=== PATIENT | female | born 1950 ===

== ENCOUNTER 2024-12-22 15:58 | Emergency (ER) | payer BC, OTHER ==
[2024-12-22 17:10] LABS: Absolute Basophils 0.1 K/uL (0-0.5); Absolute Eosinophils 0.2 K/uL (0-0.5); Absolute Lymphocytes (CBC) 2.6 K/uL (0.7-4.9); Absolute Monocytes 0.8 K/uL (0.1-1.3); Absolute Neutrophil 4.2 K/uL (1.8-8.0); Basophils % 0.8 % (0-1.3); Hematocrit 41.7 % (36.0-45.0); Hemoglobin 14.2 g/dL (12.0-15.0); Lymphocytes % 33.5 % (15.3-44.8); MCH 31.9 pg (27.0-35.0); MCHC 34.1 g/dL (32.0-36.0); MCV 93.6 fL (80-100); MPV 8.2 fL (7.6-11.3); Monocytes % 10.1 % (3.3-12.3); Neutrophils % 53.6 % (41.7-73.7); Nucleated Red Blood Cells % 0.1 % (0-0); Platelets 311 thou/uL (152-406); RBC Red Blood Cell Count 4.45 M/uL (3.86-4.86); Red Cell Distribution Width 13.2 % (12.1-15.2)
[2024-12-22 17:17] LABS: PT Prothrombin Time 11.5 SECONDS (10-13.0); PTT, Activated Partial Thromb 30.5 SECONDS (27.2-37.4); Protime INR 1.01
[2024-12-22 17:25] LABS: Anion Gap 12.1 mEq/L (5.0-15.0); Potassium 4.1 mEq/L (3.5-5.1); Troponin High Sensitivity 15.6 pg/mL (<58.9)
--- NOTE | 2024-12-22 17:54 | RAD REPORT ---
EXAMINATION: ONE VIEW CHEST XR CLINICAL INDICATION: Female, 74 years old.,CHEST PAIN TECHNIQUE: Frontal chest projection is submitted. Examination is limited by patient positioning and t echnique. COMPARISON: No prior exam. FINDINGS: The lungs are well inflated and clear. No pneumothorax or sizable effusion. The heart is normal in s ize. Mediastinal contours are unremarkable. IMPRESSION: No acute intrathoracic abnormalities.
--- NOTE | 2024-12-22 18:00 | EDPHYS ---
Physician Documentation [facility] Name: Kianna Sanderson Age: 74 yrs Sex: Female : 1950 Arrival Date: 12/22/2024 Time: 15:58 Bed 4 Private MD: ED Physician Grant Bo HPI: 12/22 16:26 This 74 yrs old Female presents to ER via Ambulatory with complaints of ec2 Abnormal EKG. 16:26 Patient arrives today for evaluation of a possible abnormal EKG. Patient reports no ec2 chest pain, or difficulty breathing. Patient reports that she occasionally has some lower extremity edema occasionally has some dyspnea exertion. Patient reports history of diabetes as well as hypertension. Was seen at her primary care doctor's office to establish care, wanted her evaluated in the ED.. Historical: - Allergies: 16:07 Actos; me1 16:07 Codeine; me1 16:07 hydrocodone; me1 - PMHx: 16:07 Diabetes mellitus; Hypertensive disorder; gastroparesis; me1 - PSHx: 16:07 Cholecystectomy; Total abdominal hysterectomy; Operative procedure on knee; pallate me1 repair as a child; Ligation of fallopian tube; - Immunization history:: Adult Immunizations up to date. - Infectious Disease History:: Denies. - Social history:: Smoking status: Patient denies any tobacco usage or history of. ROS: 16:26 Constitutional: as per hpi ec2 Exam: 16:26 Constitutional: GEN: NAD Head: atraumatic Eyes: EOMI Ears: External ears are ec2 normal. CV: regular rate LUNGS: no respiratory distress ABD: non-distended SKIN: no evidence of rashes MSK: no evidence of trauma Vital Signs: 16:03 BP 170 / 84; Pulse 78; Resp 20; Temp 98.6; Pulse Ox 100% ; Weight 117.93 kg; Height 5 me1 ft. 8 in. ; Pain 0/10; 16:57 BP 183 / 83; Pulse 66; Resp 16 S; Pulse Ox 98% on R/A; kc6 17:34 BP 145 / 90; Pulse 64; Resp 16 S; Pulse Ox 99% on R/A; kc6 16:03 Body Mass Index 39.53 (117.93 kg, 172.72 cm) me1 16:03 Pain Scale: Adult me1 MDM: 16:03 Medical Screening Exam initiated ec2 16:26 Data reviewed: vital signs, nurses notes. ED course: Patient arrives today for ec2 evaluation of an abnormal EKG. EKG obtained, independently reviewed and interpreted by me, shows normal sinus rhythm, rate of 69, no acute ST segment elevations, intervals are nonactionable. Will obtain a cardiac workup, obtain chest x-ray.. 17:59 ED course: Labs are unrevealing, on reassessment patient is well-appearing in no acute ec2 distress. Will discharge home. Return precautions given.. 12/22 16:03 Order name: Basic Metabolic Panel; Complete Time: 17:58 ec2 12/22 16:03 Order name: CBC with Diff; Complete Time: 17:58 ec2 12/22 16:03 Order name: NT PRO-BNP; Complete Time: 17:58 ec2 12/22 16:03 Order name: PT-INR; Complete Time: 17:58 ec2 12/22 16:03 Order name: Troponin HS; Complete Time: 17:58 ec2 12/22 16:03 Order name: Ptt, Activated; Complete Time: 17:58 ec2 12/22 16:03 Order name: XRAY Chest (1 view); Complete Time: 17:58 ec2 12/22 16:03 Order name: EKG; Complete Time: 16:04 ec2 12/22 16:03 Order name: Cardiac monitoring; Complete Time: 16:57 ec2 12/22 16:03 Order name: EKG - Nurse/Tech; Complete Time: 16:57 ec2 12/22 16:03 Order name: IV Saline Lock; Complete Time: 16:57 ec2 12/22 16:03 Order name: Labs collected and sent; Complete Time: 16:57 ec2 12/22 16:03 Order name: O2 Per Protocol; Complete Time: 16:57 ec2 12/22 16:03 Order name: O2 Sat Monitoring; Complete Time: 16:57 ec2 Administered Medications: No medications were administered Disposition Summary: 12/22/24 18:00 Discharge Ordered Notes: Location: Home ec2 Condition: Stable ec2 Diagnosis - Encounter for general adult medical examination ec2 Followup: ec2 - With: Private Physician - When: - Reason: Recheck today's complaints Forms: - Medication Reconciliation Form ec2 - Antibiotic Education ec2 - Prescription Opioid Use ec2 - Patient Portal Instructions ec2 - Leadership Thank You Letter ec2 Signatures: Dispatcher [employer] Karlene Broussard RN RN me1 Grant Bo MD MD ec2 Corrections: (The following items were deleted from the chart) 16:10 16:07 PMHx: cholecystectomy; me1 me1
--- NOTE | 2024-12-22 18:00 | ER ---
Nurse's Notes [facility] Name: Kianna Sanderson Age: 74 yrs Sex: Female : 1950 Arrival Date: 12/22/2024 Time: 15:58 Bed 4 Private MD: Diagnosis: Encounter for general adult medical examination Presentation: 12/22 16:03 Chief complaint: Patient states: Went for initial PCP appt and was sent here for me1 abnormal EKG by Dr Dhillon. Copy of EKG shows supraventricular rhythm. Patient reports recent onset of SOB and some swelling in feet and ankles. Denies CP. Coronavirus screen: Vaccine status: Patient reports receiving the 2nd dose of the covid vaccine. Ebola Screen: No symptoms or risks identified at this time. Initial Sepsis Screen: Does the patient meet any 2 criteria? No. Patient's initial sepsis screen is negative. Does the patient have a suspected source of infection? No. Patient's initial sepsis screen is negative. Risk Assessment: Do you want to hurt yourself or someone else? Patient reports no desire to harm self or others. Onset of symptoms is unknown. 16:03 Method Of Arrival: Ambulatory me1 16:03 Acuity: DESIREE 3 me1 Historical: - Allergies: 16:07 Actos; me1 16:07 Codeine; me1 16:07 hydrocodone; me1 - PMHx: 16:07 Diabetes mellitus; Hypertensive disorder; gastroparesis; me1 - PSHx: 16:07 Cholecystectomy; Total abdominal hysterectomy; Operative procedure on knee; pallate me1 repair as a child; Ligation of fallopian tube; - Immunization history:: Adult Immunizations up to date. - Infectious Disease History:: Denies. - Social history:: Smoking status: Patient denies any tobacco usage or history of. Screenin:57 [facility] ED Fall Risk Assessment (Adult) History of falling in the last 3 months, kc6 including since admission No falls in past 3 months (0 pts) Confusion or Disorientation No (0 pts) Intoxicated or Sedated No (0 pts) Impaired Gait No (0 pts) Mobility Assist Device Used No (0 pt) Altered Elimination No (0 pt) Score/Fall Risk Level 0 - 2 = Low Risk Oriented to surroundings, Maintained a safe environment, Educated pt \T\ family on fall prevention, incl call for assistance when getting out of bed. Abuse screen: Denies threats or abuse. Denies injuries from another. Nutritional screening: No deficits noted. Tuberculosis screening: No symptoms or risk factors identified. Assessment: 16:58 General: Appears in no apparent distress. comfortable, obese, well groomed, well kc6 developed, Behavior is calm, cooperative, appropriate for age. Pain: Denies pain. Neuro: Level of Consciousness is awake, alert, obeys commands, Oriented to person, place, time, situation, Appropriate for age. Cardiovascular: Denies chest pain, Heart tones S1 S2 present Capillary refill < 3 seconds Rhythm is sinus rhythm. Respiratory: Reports shortness of breath on exertion Airway is patent Trachea midline Respiratory effort is even, unlabored, Respiratory pattern is regular, symmetrical. GI: No signs and/or symptoms were reported involving the gastrointestinal system. : No signs and/or symptoms were reported regarding the genitourinary system. EENT: No signs and/or symptoms were reported regarding the EENT system. Derm: No signs and/or symptoms reported regarding the dermatologic system. Skin is intact, is healthy with good turgor, Skin is pink, warm \T\ dry. Musculoskeletal: Circulation, motion, and sensation intact. Range of motion: intact in all extremities, Swelling present in right leg and left leg. Vital Signs: 16:03 BP 170 / 84; Pulse 78; Resp 20; Temp 98.6; Pulse Ox 100% ; Weight 117.93 kg; Height 5 me1 ft. 8 in. ; Pain 0/10; 16:57 BP 183 / 83; Pulse 66; Resp 16 S; Pulse Ox 98% on R/A; kc6 17:34 BP 145 / 90; Pulse 64; Resp 16 S; Pulse Ox 99% on R/A; kc6 16:03 Body Mass Index 39.53 (117.93 kg, 172.72 cm) me1 16:03 Pain Scale: Adult me1 ED Course: 16:02 Patient arrived in ED. cj3 16:03 Grant Bo MD is Attending Physician. ec2 16:07 Triage completed. me1 16:07 Arm band placed on Patient placed in waiting room. me1 16:37 Estee Fry, SUJEY is Primary Nurse. kc6 16:53 XRAY Chest (1 view) In Process Unspecified. EDMS 16:57 Patient has correct armband on for positive identification. Placed in gown. Bed in low kc6 position. Call light in reach. Side rails up X 1. small business representative on. Pulse ox on. NIBP on. Door closed. Noise minimized. Lights dimmed. Warm blanket given. Pillow given. Verbal reassurance given. 16:57 Initial lab(s) drawn, by me, sent to lab. Inserted saline lock: 20 gauge in right kc6 forearm, using aseptic technique. Blood collected. Flushed with 10 mL NS. Patient maintains SpO2 saturation greater than 95% on room air. 18:52 No provider procedures requiring assistance completed. IV discontinued, intact, kc6 bleeding controlled, No redness/swelling at site. Pressure dressing applied. Administered Medications: No medications were administered Medication: 18:52 VIS not applicable for this client. kc6 Outcome: 18:00 Discharge ordered by . ec2 18:52 Discharged to home ambulatory, with family, [facility] 18:52 Condition: good 18:52 Discharge instructions given to patient, Instructed on discharge instructions, follow up and referral plans. Demonstrated understanding of instructions, follow-up care, 18:52 Patient left the ED. kc6 Signatures: Dispatcher [employer] Estee Lemus RN RN kc6 Karlene Du RN RN me1 Grant Bo MD MD ec2 Johanne Bush 3 Corrections: (The following items were deleted from the chart) 16:10 16:07 PMHx: cholecystectomy; me1 me1
[2024-12-22 19:34] VITALS: BP 145/90; TEMP 98.6; O2SAT 99
--- NOTE | 2024-12-24 08:41 | EKG ---
Test Date: 2024-12-22 Test Time: 16:17:19 Stamp Analyst: MEASUREMENT RESULTS: Intervals: Rate: 69 OR: 196 QRSD: 76 QT: 374 QTc: 400 [place]: P: 78 OR: 196 QRS: -15 T: 88 INTERPRETIVE STATEMENTS: Normal sinus rhythm Nonspecific ST and T wave abnormality Abnormal ECG No previous ECG available for comparison Electronically Signed On 12-24-24 08:37:00 CDT by Prem Matta
== END 2024-12-22 18:52 | disposition home or self-care (01) ==
LOC: ER 15:58
DX: R94.31 Abnormal electrocardiogram [ECG] [EKG] (principal)
CPT/HCPCS: 36415; 71045; 80048; 83880; 84484; 85025; 85610; 85730; 93005; 99284